=== PATIENT | female | born 1955 | race Caucasian/White ===

== ENCOUNTER 2020-01-02 21:30 | Inpatient (IN) | payer MEDICARE ==
[2020-01-02] MEDS ORDERED: SODIUM CHLORIDE 0.9% 1,000 ML IV STA (21:42)
--- NOTE | 2020-01-02 21:43 | ED ---
Recheck HPI - General Chief Complaint: Recheck/Abnormal Lab/Rx Stated Complaint: Low Hemoglobin Time Seen by Provider: 01/02/20 21:35 Source: patient, RN notes reviewed, old records reviewed Mode of arrival: wheelchair Limitations: no limitations - History of Present Illness Initial Comments: This is a 64-year-old female sent in by primary care physician for abnormal outpatient lab tests is been feeling weak lightheaded dizzy short of breath especially with exertion. Denies blood in the stool states she's having brown stools was about black and tarry stools her had recurrent GI bleeds. No blood thinners. No pain MD Complaint: abnormal lab (Low hemoglobin) -: unknown Returns Today for: Called Because of Abnormal Lab/Test Symptoms Since Prior Visit: no new symptoms Context: called for abnormal lab result Associated Symptoms: none - Related Data Allergies Allergy/AdvReac Type Severity Reaction Status Date / Time Sulfa (Sulfonamide Allergy Rash/Hives Verified 01/02/20 21:39 Antibiotics) zolpidem [From Ambien] Allergy Dyspnea Verified 01/02/20 21:39 Review of Systems ROS Statement: Those systems with pertinent positive or pertinent negative responses have been documented in the HPI. ROS Other: All systems not noted in ROS Statement are negative. Past Medical History Past Medical History: Hyperlipidemia, Hypertension Additional Past Medical History / Comment(s): hital hernia History of Any Multi-Drug Resistant Organisms: None Reported Past Surgical History: Cholecystectomy, Hysterectomy, Tonsillectomy Smoking Status: Never smoker Past Alcohol Use History: None Reported Past Drug Use History: None Reported General Exam Limitations: no limitations General appearance: alert, in no apparent distress Head exam: Present: atraumatic, normocephalic, normal inspection Eye exam: Present: normal appearance, PERRL, EOMI. Absent: scleral icterus, con junctival injection, periorbital swelling ENT exam: Present: normal exam, mucous membranes moist Neck exam: Present: normal inspection. Absent: tenderness, meningismus, lymphadenopathy Respiratory exam: Present: normal lung sounds bilaterally. Absent: respiratory distress, wheezes, rales, rhonchi, stridor Cardiovascular Exam: Present: regular rate, normal rhythm, normal heart sounds. Absent: systolic murmur, diastolic murmur, rubs, gallop, clicks GI/Abdominal exam: Present: soft, normal bowel sounds. Absent: distended, tenderness, guarding, rebound, rigid Extremities exam: Present: normal inspection, full ROM, normal capillary refill. Absent: tenderness, pedal edema, joint swelling, calf tenderness Back exam: Present: normal inspection Neurological exam: Present: alert, oriented X3, CN II-XII intact Psychiatric exam: Present: normal affect, normal mood Skin exam: Present: warm, dry, intact, normal color. Absent: rash Course Vital Signs 01/02/20 21:32 Temperature 97.9 F Pulse Rate 95 Respiratory 18 Rate Blood Pressure 181/77 O2 Sat by Pulse 100 Oximetry - Reevaluation(s) Reevaluation #1: 01/02/20 22:46 Medical record is reviewed Reevaluation #2: 01/02/20 22:47 Patient informed results questions answered, understands need for transfusion and consents - Consultations Consultation #1: spoke with Dr. alejandro savage for admission Medical Decision Making - Medical Decision Making 64 female symptomatic anemia hemoglobin by will admit for transfusion and further evaluation and treatment - Lab Data Result diagrams: 01/02/20 21:44 Lab Results 01/02/20 01/02/20 01/02/20 Range/Units 21:44 21:44 21:44 Sodium 137 (137-145) mmol/L Potassium 3.8 (3.5-5.1) mmol/L Chloride 101 (98-107) mmol/L Carbon Dioxide 25 (22-30) mmol/L Anion Gap 11 mmol/L BUN 13 (7-17) mg/dL Creatinine 0.75 (0.52-1.04) mg/dL Est GFR (CKD-EPI)AfAm >90 (>60 ml/min/1.73 sqM) Est GFR (CKD-EPI)NonAf 83 (>60 ml/min/1.73 sqM) Glucose 236 H (74-99) mg/dL Calcium 9.2 (8.4-10.2) mg/dL Magnesium 2.0 (1.6-2.3) mg/dL Total Bilirubin 0.3 (0.2-1.3) mg/dL AST 25 (14-36) U/L ALT 17 (4-34) U/L Alkaline Phosphatase 89 (38-126) U/L Troponin I <0.012 (0.000-0.034) ng/mL Total Protein 7.2 (6.3-8.2) g/dL Albumin 3.9 (3.5-5.0) g/dL Blood Type Recheck No Previous Record Bld Type Recheck Status CABO Indicated Crossmatch See Detail Disposition Clinical Impression: Anemia Disposition: ADMITTED IP TO THIS HOSP Condition: Good Is patient prescribed a controlled substance at d/c from ED?: No Referrals: Shayne Weller MD [Primary Care Provider] - 1-2 days
[2020-01-02 22:23] LABS: ALT 17 U/L (4-34); AST 25 U/L (14-36); African American GFR (CKD) >90 (>60 ml/min/1.73 sqM); Albumin 3.9 g/dL (3.5-5.0); Alkaline Phosphatase 89 U/L (38-126); Anion Gap 11 mmol/L; Blood Urea Nitrogen 13 mg/dL (7-17); Calcium 9.2 mg/dL (8.4-10.2); Carbon Dioxide 25 mmol/L (22-30); Chloride 101 mmol/L (98-107); Glucose 236 mg/dL (74-99); Non-African American GFR(CKD) 83 (>60 ml/min/1.73 sqM); Potassium 3.8 mmol/L (3.5-5.1); Sodium 137 mmol/L (137-145); Total Bilirubin 0.3 mg/dL (0.2-1.3); Total Protein 7.2 g/dL (6.3-8.2)
[2020-01-02 22:27] LABS: Anisocytosis Slight; Basophils # (A) 0.1 k/uL (0-0.2); Basophils % (A) 1 %; Eosinophils # (A) 0.2 k/uL (0-0.7); Eosinophils % (A) 2 %; HCT 20.4 % (34.0-46.0); Hypochromasia Marked; Lymphocytes # (A) 1.6 k/uL (1.0-4.8); Lymphocytes % (A) 24 %; MCH 15.7 pg (25.0-35.0); MCHC 25.8 g/dL (31.0-37.0); MCV 60.9 fL (80.0-100.0); Mean Platelet Volume 6.5; Microcytosis Marked; Monocytes # (A) 0.4 k/uL (0-1.0); Monocytes % (A) 6 %; Neutrophils # (A) 4.4 k/uL (1.3-7.7); Neutrophils % (A) 64 %; Platelet Count 505 k/uL (150-450); Poikilocytosis Slight; RBC 3.35 m/uL (3.80-5.40); RDW 18.1 % (11.5-15.5); WBC 6.8 k/uL (3.8-10.6)
[2020-01-02 22:38] LABS: INR 0.9 (<1.2); Prothrombin Time 9.4 sec (9.0-12.0)
[2020-01-02 22:47] LABS: HGB 5.3 gm/dL (11.4-16.0)
[2020-01-02 22:57] LABS: Partial Thromboplastin Time 19.6 sec (22.0-30.0)
[2020-01-03 07:03] LABS: Anisocytosis Moderate; Basophils # (A) 0.1 k/uL (0-0.2); Basophils % (A) 1 %; Eosinophils # (A) 0.3 k/uL (0-0.7); Eosinophils % (A) 4 %; HCT 23.7 % (34.0-46.0); Hypochromasia Marked; Lymphocytes # (A) 1.7 k/uL (1.0-4.8); Lymphocytes % (A) 25 %; MCH 18.9 pg (25.0-35.0); MCHC 28.9 g/dL (31.0-37.0); MCV 65.7 fL (80.0-100.0); Mean Platelet Volume 6.7; Microcytosis Marked; Monocytes # (A) 0.4 k/uL (0-1.0); Monocytes % (A) 6 %; Neutrophils # (A) 4.1 k/uL (1.3-7.7); Neutrophils % (A) 61 %; Platelet Count 494 k/uL (150-450); Poikilocytosis Marked; RBC 3.61 m/uL (3.80-5.40); RDW 21.1 % (11.5-15.5); WBC 6.8 k/uL (3.8-10.6)
[2020-01-03 08:03] LABS: HGB 6.8 gm/dL (11.4-16.0)
[2020-01-03 10:23] LABS: Reticulocyte % 2.3 % (0.5-2.0)
[2020-01-03] MEDS ORDERED: DULoxetine HCL 60 MG CAPSULE.DR PO SCH (11:00)
[2020-01-03 11:58] LABS: Glucose,Whole Blood 140 mg/dL (75-99)
[2020-01-03] MEDS: LEVOTHYROXINE 75 MCG TAB PO SCH (12:28)
[2020-01-03] MEDS: PANTOPRAZOLE 40 MG/10 ML VIAL IVP SCH ×2 (12:37→20:48)
[2020-01-03] MEDS: INSULIN ASPART (NovoLOG) 100 UNIT/ML VIAL SQ SCH ×3 (12:39→20:43)
[2020-01-03 15:48] LABS: % Iron Saturation 33.21 (12.00-45.00); Ferritin 2.8 ng/mL (10.0-291.0); Folate, Serum 20.2 ng/mL
[2020-01-03] MEDS ORDERED: PEG 3350-NA SULF,BICARB,CL/KCL 4,000 ML BOTTLE PO ONE (17:00)
[2020-01-03 17:10] LABS: Glucose,Whole Blood 99 mg/dL (75-99)
[2020-01-03] MEDS ORDERED: LIDOCAINE 1% (10MG/ML) FOR IV START INTRADERMA PRN (18:11)
--- NOTE | 2020-01-03 19:35 | P.HPIM ---
History of Present Illness H&P Date: 01/03/20 Chief Complaint: Weak History of presenting complaint: This is a pleasant 64-year-old patient of Dr. Curtis Weller. Chronic stable medical conditions include fibromyalgia, GERD, hypertension, hyperlipidemia, osteoarthritis, obstructive sleep apnea uses CPAP, restless leg syndrome, hiatal hernia, diverticulosis, hypothyroid. Patient does take a baby aspirin. Patient presents with progressive weakness. Getting dizzy. Short of breath with exertion. No chest pain. Patient is found to have a hemoglobin of 5.3. Patient denies any black stools. Also had a brown stool this morning. Patient was ordered 2 units of blood from ER this last night. This morning the hemog lobin was 6.8. I ordered another unit of blood. GI was consulted. Patient appetite has been stable. No weight loss. Review of systems: GEN.: Tired EYES: None HEENT: None NECK: None RESPIRATORY: None CARDIOVASCULAR: None GASTROINTESTINAL: No abdominal pain now dock stools GENITOURINARY: None MUSCULOSKELETAL: Joint pains LYMPHATICS: None HEMATOLOGICAL: None PSYCHIATRY: None NEUROLOGICAL: None Past medical history to include: Fibromyalgia, GERD, hypertension, hyperlipidemia, osteoarthritis, diabetes type 2, obstructive sleep apnea with CPAP, restless leg syndrome, hiatal hernia, diverticulosis, hypothyroid, right eye macular changes with cataract Social history: . Does not smoke or drink alcohol. Physical examination: VITAL SIGNS: 97.9, 95, 18, 154/71, 98% room air GENERAL: BMI 39.5, sitting upon chair, awake. EYES: [Pupils equal. Conjunctiva pale l. HEENT: External appearance of nose and ears normal, oral cavity grossly normal. NECK: JVD not raised; masses not palpable. HEART: First and second heart sounds are normal; no edema. LUNGS: Respiratory rate normal; clear to auscultation. ABDOMEN: Soft, nontender, liver spleen not palpable, no masses palpable. PSYCH: Alert and oriented x3; mood and affect normal. NEUROLOGICAL: Cranial nerves grossly intact; no facial asymmetry, power and sensation grossly intact. LYMPHATICS: No lymph nodes palpable in the axilla and neck INVESTIGATIONS, reviewed in the clinical context: White count 6.8 hemoglobin 5. 3 repeat this morning 6.8 platelets 505 MCV 60.9 Potassium 3.8 creatinine 0.75 INR 175 TIBC 527 ferritin 2.8 vitamin B12 572 folate 20.2 Assessment: -Acute severe microcytic anemia in a patient with resting aspirin. Denies any obvious dark stools. May be having occult bleeding. -Obesity BMI 39.5 Chronic fibromyalgia GERD Hyperlipidemia -Essential hypertension -Primary osteoarthritis -Hypothyroid -Diet is mellitus type II -Arthritis sleep apnea uses CPAP -Restless leg syndrome Plan: Patient's home medications and resume. Hold off oral hypoglycemic. Follow Accu-Cheks. GI was consulted with a view to EGD. Care was discussed with the patient question also. Patient received a total of 3 units of blood.. Past Medical History Past Medical History: Eye Disorder, Fibromyalgia, GERD/Reflux, Hyperlipidemia, Hypertension, Osteoarthritis (OA), Renal Disease, Thyroid Disorder Additional Past Medical History / Comment(s): NIDDM type II, PEYTON with Cpap, restless leg syndrome, hiatal hernia, UTIs, kidney stone which pt passed on her own, diverticulitis, benign colon polyps, hypothyroid, R eye macular pucker/cataract/retinal tear during surgery, L eye cataract. History of Any Multi-Drug Resistant Organisms: None Reported Past Surgical History: Cholecystectomy, Hysterectomy, Tonsillectomy Additional Past Surgical History / Comment(s): Rectocele, cystocele, colonoscopies, R eye surgery for macular pucker/cataract removal and had retinal tear with repair, Past Anesthesia/Blood Transfusion Reactions: No Reported Reaction Smoking Status: Never smoker - Past Family History Mother Family Medical History: COPD Additional Family Medical History / Comment(s): Mother was a heavy smoker. Father Family Medical History: Cancer, COPD Additional Family Medical History / Comment(s): Father was a heavy smoker. He of metastatic prostate cancer. Medications and Allergies Home Medications Medication Instructions Recorded Confirmed Type Aspirin EC [Ecotrin Low Dose] 81 mg PO DAILY 01/02/20 01/02/20 History DULoxetine HCL [Cymbalta] 60 mg PO DAILY 01/02/20 01/02/20 History Famotidine 20 mg PO DAILY 01/02/20 01/02/20 History Levothyroxine Sodium [Synthroid] 150 mcg PO DAILY 01/02/20 01/02/20 History Loratadine 10 mg PO DAILY 01/02/20 01/02/20 History Magnesium Oxide 400 mg PO HS 01/02/20 01/02/20 History Simvastatin [Zocor] 10 mg PO HS 01/02/20 01/02/20 History Vitamin B Complex 1 cap PO DAILY 01/02/20 01/02/20 History hydroCHLOROthiazide 25 mg PO DAILY 01/02/20 01/02/20 History metFORMIN HCL [Glucophage] 500 mg PO BID 01/02/20 01/02/20 History tiZANidine [Zanaflex] 4 mg PO HS 01/02/20 01/02/20 History Allergies Allergy/AdvReac Type Severity Reaction Status Date / Time Sulfa (Sulfonamide Allergy Rash/Hives Verified 01/02/20 23:41 Antibiotics) zolpidem [From Ambien] Allergy Dyspnea Verified 01/02/20 23:41 Physical Exam Vitals: Vital Signs Temp Pulse Pulse Resp BP BP Pulse Ox 01/03/20 15:55 97.9 F 83 18 164/74 96 01/03/20 12:55 98 F 84 18 169/88 96 01/03/20 12:25 86 18 173/91 95 01/03/20 12:15 97.8 F 85 18 168/84 97 01/03/20 11:06 97.8 F 85 18 168/84 97 01/03/20 10:24 97.9 F 82 18 156/74 96 01/03/20 10:00 18 01/03/20 09:00 82 18 156/74 96 01/03/20 08:00 18 01/03/20 06:40 97.9 F 89 16 166/85 96 01/03/20 03:50 98.0 F 94 16 146/60 99 01/03/20 02:25 97.8 F 83 18 163/81 99 01/03/20 01:55 98.7 F 82 18 162/76 97 01/03/20 01:45 98.0 F 91 16 157/75 01/03/20 01:24 97.8 F 90 18 172/81 98 01/03/20 01:19 98.1 F 94 16 148/68 97 01/03/20 00:13 98.2 F 88 18 152/58 98 01/02/20 23:43 98.3 F 85 16 156/81 98 01/02/20 23:33 98.1 F 88 16 166/58 99 01/02/20 23:09 70 18 154/71 98 01/02/20 21:32 97.9 F 95 18 181/77 100 Intake and Output 01/03/20 01/03/20 01/03/20 06:59 14:59 22:59 Intake Total 620 0 310 Balance 620 0 310 Intake: Blood Product 620 0 310 Rc Pheresis 2 As3 Unit 0 310 [id number] Rc Pheresis 2 As3 Unit 310 [id number] Rc Pheresis As-3 Unit 310 [id number] Other: # Voids 3 Weight 114.305 kg Results CBC & Chem 7: 01/03/20 06:48 01/02/20 21:44 Labs: Abnormal Lab Results - Last 24 Hours (Table) 01/02/20 01/02/20 01/02/20 Range/Units 21:44 21:44 21:44 RBC 3.35 L (3.80-5.40) m/uL Hgb 5.3 L* (11.4-16.0) gm/dL Hct 20.4 L (34.0-46.0) % MCV 60.9 L (80.0-100.0) fL MCH 15.7 L (25.0-35.0) pg MCHC 25.8 L (31.0-37.0) g/dL RDW 18.1 H (11.5-15.5) % Plt Count 505 H (150-450) k/uL Retic Count (0.5-2.0) % APTT 19.6 L (22.0-30.0) sec Glucose 236 H (74-99) mg/dL POC Glucose (mg/dL) (75-99) mg/dL Iron (50-170) ug/dL TIBC (228-460) ug/dL Ferritin (10.0-291.0) ng/mL Crossmatch 01/02/20 01/02/20 01/03/20 Range/Units 21:44 21:44 06:48 RBC 3.61 L (3.80-5.40) m/uL Hgb 6.8 L* D (11.4-16.0) gm/dL Hct 23.7 L (34.0-46.0) % MCV 65.7 L (80.0-100.0) fL MCH 18.9 L (25.0-35.0) pg MCHC 28.9 L (31.0-37.0) g/dL RDW 21.1 H (11.5-15.5) % Plt Count 494 H (150-450) k/uL Retic Count 2.3 H (0.5-2.0) % APTT (22.0-30.0) sec Glucose (74-99) mg/dL POC Glucose (mg/dL) (75-99) mg/dL Iron (50-170) ug/dL TIBC (228-460) ug/dL Ferritin (10.0-291.0) ng/mL Crossmatch See Detail 01/03/20 01/03/20 Range/Units 06:48 11:56 RBC (3.80-5.40) m/uL Hgb (11.4-16.0) gm/dL Hct (34.0-46.0) % MCV (80.0-100.0) fL MCH (25.0-35.0) pg MCHC (31.0-37.0) g/dL RDW (11.5-15.5) % Plt Count (150-450) k/uL Retic Count (0.5-2.0) % APTT (22.0-30.0) sec Glucose (74-99) mg/dL POC Glucose (mg/dL) 140 H (75-99) mg/dL Iron 175 H (50-170) ug/dL TIBC 527 H (228-460) ug/dL Ferritin 2.8 L (10.0-291.0) ng/mL Crossmatch Thrombosis Risk Factor Assmnt - Choose All That Apply Any of the Below Risk Factors Present?: Yes Each Factor Represents 1 point: Obesity (BMI >25) Other Risk Factors: Yes Each Risk Factor Represents 2 Points: Age 61-74 years Other congenital or acquired thrombophilia - If yes, enter type in comment: No Thrombosis Risk Factor Assessment Total Risk Factor Score: 3 Thrombosis Risk Factor Assessment Level: Moderate Risk
[2020-01-03 20:42] LABS: Glucose,Whole Blood 116 mg/dL (75-99)
[2020-01-03] MEDS: tiZANidine 4 MG TAB PO SCH (20:48)
[2020-01-03] MEDS: DULoxetine HCL 60 MG CAPSULE.DR PO SCH (20:48)
[2020-01-03] MEDS: ATORVASTATIN 10 MG TAB PO SCH (20:48)
[2020-01-04] MEDS: LEVOTHYROXINE 75 MCG TAB PO SCH (04:35)
[2020-01-04 05:26] LABS: Anisocytosis Moderate; HCT 26.6 % (34.0-46.0); HGB 7.4 gm/dL (11.4-16.0); Hypochromasia Marked; MCHC 27.8 g/dL (31.0-37.0); MCV 68.5 fL (80.0-100.0); Mean Platelet Volume 6.3; Microcytosis Marked; Platelet Count 428 k/uL (150-450); Poikilocytosis Marked; RBC 3.89 m/uL (3.80-5.40); RDW 22.4 % (11.5-15.5); WBC 6.5 k/uL (3.8-10.6)
[2020-01-04] MEDS: LACTATED RINGERS 1,000 ML IV SCH ×2 (05:33→18:17)
[2020-01-04 07:13] LABS: Glucose,Whole Blood 144 mg/dL (75-99)
--- NOTE | 2020-01-04 08:21 | P.CONS ---
History of Present Illness - Reason for Consult Consult date: 01/03/20 Anemia Requesting physician: Singh Roberto - Chief Complaint Anemia - History of Present Illness 64-year-old female with a medical history significant for diabetes mellitus, hyperlipidemia and hypertension who presented to the hospital for evaluation of anemia. The patient had been seen in the outpatient setting by her PCP where she had reported weakness and shortness of breath. Hemoglobin was drawn at that time and found to be depressed at 5.0. On questioning the patient denies any gross signs or symptoms of GI bleeding. She does have a history of acid reflux worse with eating. Previously she had undergone endoscopic evaluation approximately 4 to 5 years ago with EGD and colonoscopy at [facility] significant for diverticulosis. She also reports a history of a hiatal hernia. Hemoglobin currently 6.8 with WBC 6.8, platelet count 494,000 with total bilirubin 0.3, alkaline phosphatase 89, AST 25 and ALT 17. The patient does take aspirin daily. Currently denying any abdominal pain. Review of Systems REVIEW OF SYSTEMS: CONSTITUTIONAL: Denies any fevers, chills, weight change but she does report fatigue. CARDIOVASCULAR: Denies any chest pain, palpitations high or low blood pressures RESPIRATORY: Denies any hemoptysis or cough but does report shortness of breath. GENITOURINARY: No dysuria or hematuria, does report dark colored urine. MUSCULOSKELETAL: No weakness reported. SKIN: Denies any new rashes or lesions, jaundice or pallor. PSYCHIATRIC: Denies any depression or anxiety. NEUROLOGY: Denies headache, denies any new focal deficits. EARS/NOSE/THROAT: No recent hearing change, congestion, nasal discharge or sore throat. EYES: No pain in eyes, discharge or change in vision. GASTROINTESTINAL: As per HPI. Past Medical History Past Medical History: Eye Disorder, Fibromyalgia, GERD/Reflux, Hyperlipidemia, Hypertension, Osteoarthritis (OA), Renal Disease, Thyroid Disorder Additional Past Medical History / Comment(s): NIDDM type II, PEYTON with Cpap, restless leg syndrome, hiatal hernia, UTIs, kidney stone which pt passed on her own, diverticulitis, benign colon polyps, hypothyroid, R eye macular pucker/cataract/retinal tear during surgery, L eye cataract. History of Any Multi-Drug Resistant Organisms: None Reported Past Surgical History: Cholecystectomy, Hysterectomy, Tonsillectomy Additional Past Surgical History / Comment(s): Rectocele, cystocele, colonoscopies, R eye surgery for macular pucker/cataract removal and had retinal tear with repair, Past Anesthesia/Blood Transfusion Reactions: No Reported Reaction Smoking Status: Never smoker - Past Family History Mother Family Medical History: COPD Additional Family Medical History / Comment(s): Mother was a heavy smoker. Father Family Medical History: Cancer, COPD Additional Family Medical History / Comment(s): Father was a heavy smoker. He of metastatic prostate cancer. Medications and Allergies Home Medications Medication Instructions Recorded Confirmed Type Aspirin EC [Ecotrin Low Dose] 81 mg PO DAILY 01/02/20 01/02/20 History DULoxetine HCL [Cymbalta] 60 mg PO DAILY 01/02/20 01/02/20 History Famotidine 20 mg PO DAILY 01/02/20 01/02/20 History Levothyroxine Sodium [Synthroid] 150 mcg PO DAILY 01/02/20 01/02/20 History Loratadine 10 mg PO DAILY 01/02/20 01/02/20 History Magnesium Oxide 400 mg PO HS 01/02/20 01/02/20 History Simvastatin [Zocor] 10 mg PO HS 01/02/20 01/02/20 History Vitamin B Complex 1 cap PO DAILY 01/02/20 01/02/20 History hydroCHLOROthiazide 25 mg PO DAILY 01/02/20 01/02/20 History metFORMIN HCL [Glucophage] 500 mg PO BID 01/02/20 01/02/20 History tiZANidine [Zanaflex] 4 mg PO HS 01/02/20 01/02/20 History Allergies Allergy/AdvReac Type Severity Reaction Status Date / Time Sulfa (Sulfonamide Allergy Rash/Hives Verified 01/02/20 23:41 Antibiotics) zolpidem [From Ambien] Allergy Dyspnea Verified 01/02/20 23:41 Physical Exam Vitals: Vital Signs Temp Pulse Pulse Resp BP BP Pulse Ox 01/03/20 12:55 98 F 84 18 169/88 96 01/03/20 12:25 86 18 173/91 95 01/03/20 12:15 97.8 F 85 18 168/84 97 01/03/20 11:06 97.8 F 85 18 168/84 97 01/03/20 10:24 97.9 F 82 18 156/74 96 01/03/20 10:00 18 01/03/20 09:00 82 18 156/74 96 01/03/20 08:00 18 01/03/20 06:40 97.9 F 89 16 166/85 96 01/03/20 03:50 98.0 F 94 16 146/60 99 01/03/20 02:25 97.8 F 83 18 163/81 99 01/03/20 01:55 98.7 F 82 18 162/76 97 01/03/20 01:45 98.0 F 91 16 157/75 01/03/20 01:24 97.8 F 90 18 172/81 98 01/03/20 01:19 98.1 F 94 16 148/68 97 01/03/20 00:13 98.2 F 88 18 152/58 98 01/02/20 23:43 98.3 F 85 16 156/81 98 01/02/20 23:33 98.1 F 88 16 166/58 99 01/02/20 23:09 70 18 154/71 98 01/02/20 21:32 97.9 F 95 18 181/77 100 Intake and Output 01/03/20 01/03/20 01/03/20 06:59 14:59 22:59 Intake Total 620 0 Balance 620 0 Intake: Blood Product 620 0 Rc Pheresis 2 As3 Unit 0 [id number] Rc Pheresis 2 As3 Unit 310 [id number] Rc Pheresis As-3 Unit 310 [id number] Other: # Voids 3 Weight 114.305 kg On physical examination, patient appears comfortable in no apparent distress. HEAD: Normocephalic, atraumatic. EYES: No scleral icterus. No conjunctival injection. MOUTH: No lesions, tongue midline. NECK: Trachea midline, no gross abnormalities. CHEST: Clear to auscultation with no wheezing or rhonchi appreciated. HEART: Regular rate and rhythm. ABDOMEN: Soft, obese. Bowel sounds are positive. No organomegaly. No guarding or rigidity. EXTREMITIES: No pedal edema. SKIN: No rashes, no jaundice. NEUROLOGIC: Alert and oriented x3. No focal deficits. Results CBC & Chem 7: 01/04/20 04:51 01/02/20 21:44 Labs: Abnormal Lab Results - Last 24 Hours (Table) 01/02/20 01/02/2020 Range/Units 21:44 21:44 21:44 RBC 3.35 L (3.80-5.40) m/uL Hgb 5.3 L* (11.4-16.0) gm/dL Hct 20.4 L (34.0-46.0) % MCV 60.9 L (80.0-100.0) fL MCH 15.7 L (25.0-35.0) pg MCHC 25.8 L (31.0-37.0) g/dL RDW 18.1 H (11.5-15.5) % Plt Count 505 H (150-450) k/uL Retic Count (0.5-2.0) % APTT 19.6 L (22.0-30.0) sec Glucose 236 H (74-99) mg/dL POC Glucose (mg/dL) (75-99) mg/dL Crossmatch 01/02/20 01/02/20 01/03/20 Range/Units 21:44 21:44 06:48 RBC 3.61 L (3.80-5.40) m/uL Hgb 6.8 L* D (11.4-16.0) gm/dL Hct 23.7 L (34.0-46.0) % MCV 65.7 L (80.0-100.0) fL MCH 18.9 L (25.0-35.0) pg MCHC 28.9 L (31.0-37.0) g/dL RDW 21.1 H (11.5-15.5) % Plt Count 494 H (150-450) k/uL Retic Count 2.3 H (0.5-2.0) % APTT (22.0-30.0) sec Glucose (74-99) mg/dL POC Glucose (mg/dL) (75-99) mg/dL Crossmatch See Detail 01/03/20 Range/Units 11:56 RBC (3.80-5.40) m/uL Hgb (11.4-16.0) gm/dL Hct (34.0-46.0) % MCV (80.0-100.0) fL MCH (25.0-35.0) pg MCHC (31.0-37.0) g/dL RDW (11.5-15.5) % Plt Count (150-450) k/uL Retic Count (0.5-2.0) % APTT (22.0-30.0) sec Glucose (74-99) mg/dL POC Glucose (mg/dL) 140 H (75-99) mg/dL Crossmatch Assessment and Plan (1) Microcytic hypochromic anemia Narrative/Plan: 64-year-old female with multiple medical comorbidities presenting to the hospital for evaluation of symptomatic anemia with hemoglobin found to be 5.0 in the outpatient setting and with complaints of shortness of breath and weakness. Hemoglobin currently 6.8 status post transfusion of 2 units of packed red blood cells. She is denying any signs or symptoms of GI bleeding but does take daily aspirin therapy. Last endoscopic evaluation 45 years ago with a EGD and colonoscopy significant for diverticulosis. Unclear etiology of anemia with plan for endoscopic evaluation to rule out GI bleed and differential including peptic ulcer disease, gastritis, esophagitis, AVM, or other etiology. Current Visit: Yes Status: Acute Code(s): D50.9 - IRON DEFICIENCY ANEMIA, UNSPECIFIED SNOMED Code(s): 93432646 Plan: Supportive care Clear liquid diet N.p.o. after midnight Continue to monitor hemoglobin and hematocrit and transfuse as needed Bowel prep ordered Continue Protonix therapy Iron studies ordered Plan for EGD and colonoscopy tomorrow with all the risks, benefits and possible complications discussed with the patient and her daughter at length and all of their questions answered to their satisfaction
[2020-01-04] MEDS: INSULIN ASPART (NovoLOG) 100 UNIT/ML VIAL SQ SCH ×4 (08:26→20:32)
[2020-01-04] MEDS: PANTOPRAZOLE 40 MG/10 ML VIAL IVP SCH ×2 (08:43→20:56)
[2020-01-04 09:21] LABS: African American GFR (CKD) 104.6 (60.0-200.0); Anion Gap 9.2 mmol/L (4.00-12.00); BUN/Creat Ratio 11.43 Ratio (12.00-20.00); Carbon Dioxide 25.8 mmol/L (21.6-31.8); Non-African American GFR(CKD) 90.3 (60.0-200.0); Potassium 4.2 mmol/L (3.5-5.5)
[2020-01-04 11:23] LABS: Glucose,Whole Blood 137 mg/dL (75-99)
[2020-01-04] MEDS ORDERED: SODIUM CHLORIDE 0.9% 1,000 ML IV ONE (12:33)
[2020-01-04] MEDS ORDERED: PROPOFOL 10 MG/ML 20 ML VIAL IV ONE (12:37)
[2020-01-04] MEDS ORDERED: LIDOCAINE 1% INJ 10MG/ML (20 ML MDV) ONE (12:37)
--- NOTE | 2020-01-04 13:25 | P.PCN ---
Date of Procedure: 01/04/20 Description of Procedure: Brief history: 64-year-old female with a medical history significant for diabetes mellitus, hyperlipidemia and hypertension who presented to the hospital for evaluation of anemia. The patient had been seen in the outpatient setting by her PCP where she had reported weakness and shortness of breath. Hemoglobin was drawn at that time and found to be depressed at 5.0. On questioning the patient denies any gross signs or symptoms of GI bleeding. She does have a history of acid reflux worse with eating. Previously she had undergone endoscopic evaluation approximately 4 to 5 years ago with EGD and colonoscopy at [facility] significant for diverticulosis. She also reports a history of a hiatal hernia. Hemoglobin currently 6.8 with WBC 6.8, platelet count 494,000 with total bilirubin 0.3, alkaline phosphatase 89, AST 25 and ALT 17. The patient does take aspirin daily. Currently denying any abdominal pain. Procedure performed: Esophagogastroduodenoscopy with biopsy Colonoscopy with polypectomy Estimated blood loss: Minimal. Preoperative diagnosis: Anemia. Anesthesia: MAC Procedure: After informed consent was obtained from the patient was brought into the endoscopy unit and IV sedation was administered by anesthesia under continuous monitoring. Initially upper endoscopy was done. The Olympus GF 190 video endoscope was inserted into the mouth and esophagus intubated without any difficulty and was gradually advanced into the stomach and duodenum and carefully examined. The bulb and second part of the duodenum appeared normal, with biopsies taken. The scope was then withdrawn into the stomach adequately insufflated with air and upon careful examination the antrum and body, cardia and fundus appeared normal, except for some mild scattered erythema in the antrum and body suggestive of mild gastritis with biopsies taken. The scope was then withdrawn into the esophagus. The GE junction was located at 35 cm to the incisors, with a 5 cm hiatal hernia noted. It appeared regular with no erythema erosions or ulcerations. Rest of the esophagus appeared normal. Patient tolerated the procedure well. At this time the patient continued to remain sedation. Initial digital rectal examination was normal. Olympus CF 190 video colonoscope was then inserted into the rectum and gradually advanced to the cecum without any difficulty. Careful examination was performed as the scope was gradually being withdrawn. The prep was excellent. The cecum, ascending colon, transverse colon, descending colon, sigmoid colon and rectum appeared normal. A diminutive 2 mm sigmoid colon polyp was removed with cold forcep polypectomy. A few scattered diverticula noted in the sigmoid colon. Low-grade internal hemorrhoids. Retroflexion was performed in the rectum and no lesions were noted. Patient tolerated the procedure well. Impression: 1. Mild gastritis. Large hiatal hernia. Biopsies taken of the antrum body and duodenum. 2. Diminutive sigmoid polyp removed with cold forceps. Mild sigmoid diverticulosis. Internal hemorrhoids. Recommendations: Findings of this examination were discussed with the patient. Continue monitor hemoglobin and hematocrit and transfuse as needed. Plan is for video capsule endoscopy for further evaluation. Further recommendations pending findings of a VCE.
[2020-01-04] MEDS ORDERED: SIMETHICONE 40 MG/0.6 ML DROPS 2,000 MG/30 ML BOTTLE PO ONE (15:10)
[2020-01-04 17:15] LABS: Glucose,Whole Blood 124 mg/dL (75-99)
--- NOTE | 2020-01-04 19:33 | P.PN ---
Progress Note - Text Progress Note Date: 01/04/20 Chief Complaint: Weak History of presenting complaint: This is a pleasant 64-year-old patient of Dr. Curtis Weller. Chronic stable medical conditions include fibromyalgia, GERD, hypertension, hyperlipidemia, osteoarthritis, obstructive sleep apnea uses CPAP, restless leg syndrome, hiatal hernia, diverticulosis, hypothyroid. Patient does take a baby aspirin. Patient presents with progressive weakness. Getting dizzy. Short of breath with exertion. No chest pain. Patient is found to have a hemoglobin of 5.3. Patient denies any black stools. Also had a brown stool this morning. Patient was ordered 2 units of blood from ER this last night. This morning the hemoglobin was 6.8. I ordered another unit of blood. appetite has been stable. No weight loss. Today-laying in bed. Comfortable. Later this afternoon went for EGD. Moderately large hiatal hernia. Plan is for a small bowel capsule study. Review of systems: Was done for constitutional, cardiovascular, GI, pulmonary. relevant finding as above Active Medications Acetaminophen (Acetaminophen Tab 325 Mg Tab) 650 mg PO Q6HR PRN PRN Reason: Fever and/ or Pain Atorvastatin Calcium (Atorvastatin 10 Mg Tab) 10 mg PO [facility] Last Admin: 01/03/20 20:48 Dose: 10 mg Documented by: Duloxetine HCl (Duloxetine Hcl 60 Mg Juan Manuel.) 60 mg PO [facility] Last Admin: 01/03/20 20:48 Dose: 60 mg Documented by: Lactated Ringer's (Lactated Ringers) 1,000 mls @ 20 mls/hr IV .Q24H [facility] Last Admin: 01/04/20 18:17 Dose: Not Given Documented by: Insulin Aspart (Insulin Aspart (Novolog) 100 Unit/Ml Vial) 0 unit SQ [facility]; Protocol Last Admin: 01/04/20 18:17 Dose: Not Given Documented by: Levothyroxine Sodium (Levothyroxine 75 Mcg Tab) 150 mcg PO DAILY@0630 [facility] Last Admin: 01/04/20 04:35 Dose: Not Given Documented by: Lidocaine HCl (Lidocaine 1% (10mg/Ml) For Iv Start) 0.1 ml INTRADERMA PER PROTOCOL PRN PRN Reason: IV Start Pantoprazole Sodium (Pantoprazole 40 Mg/10 Ml Vial) 40 mg IVP BID [facility] Last Admin: 01/04/20 08:43 Dose: 40 mg Documented by: Tizanidine HCl (Tizanidine 4 Mg Tab) 4 mg PO HS [facility] Last Admin: 01/03/20 20:48 Dose: 4 mg Documented by: Physical examination: VITAL SIGNS: 98.5, 85, 18, 157/89, 96% room air GENERAL: Laying in bed, comfortable EYES: Pupils equal. Conjunctiva pale . NECK: JVD not raised; masses not palpable. HEART: First and second heart sounds are normal; no edema. LUNGS: Respiratory rate normal; clear to auscultation. ABDOMEN: Soft, nontender, liver spleen not palpable, no masses palpable. PSYCH: Alert and oriented x3; mood and affect normal. INVESTIGATIONS, reviewed in the clinical context: Hemoglobin 7.4 Previous testing White count 6.8 hemoglobin 5. 3 repeat - 6.8 platelets 505 MCV 60.9 Potassium 3.8 creatinine 0.75 INR 175 TIBC 527 ferritin 2.8 vitamin B12 572 folate 20.2 Assessment: -Acute severe microcytic anemia in a patient who takes baby aspirin. Denies any obvious dark stools. EGD shows large hiatal hernia. -Obesity BMI 39.5 -Chronic fibromyalgia -GERD -Hyperlipidemia -Essential hypertension -Primary osteoarthritis -Hypothyroid -Diabetes mellitus type II -Arthritis sleep apnea uses CPAP -Restless leg syndrome Plan: Plan is for patient to go for a small bowel capsule study tomorrow. Repeat hemoglobin. We'll get a hematology consultation. Discussed with patient.
[2020-01-04] MEDS: ACETAMINOPHEN TAB 325 MG TAB PO PRN (19:58)
[2020-01-04] MEDS: DULoxetine HCL 60 MG CAPSULE.DR PO SCH (20:57)
[2020-01-04] MEDS: ATORVASTATIN 10 MG TAB PO SCH (20:57)
[2020-01-04] MEDS: tiZANidine 4 MG TAB PO SCH (20:57)
[2020-01-05] MEDS: LEVOTHYROXINE 75 MCG TAB PO SCH (05:47)
[2020-01-05 06:50] LABS: Anisocytosis Marked; Basophils % (A) 1 %; Eosinophils # (A) 0.2 k/uL (0-0.7); Eosinophils % (A) 4 %; HCT 26.1 % (34.0-46.0); HGB 7.2 gm/dL (11.4-16.0); Hypochromasia Marked; Lymphocytes # (A) 1.7 k/uL (1.0-4.8); Lymphocytes % (A) 29 %; MCHC 27.6 g/dL (31.0-37.0); MCV 68.8 fL (80.0-100.0); Mean Platelet Volume 6.8; Microcytosis Marked; Monocytes # (A) 0.4 k/uL (0-1.0); Monocytes % (A) 8 %; Neutrophils # (A) 3.2 k/uL (1.3-7.7); Neutrophils % (A) 55 %; Platelet Count 425 k/uL (150-450); Poikilocytosis Marked; RBC 3.79 m/uL (3.80-5.40); RDW 24.5 % (11.5-15.5); WBC 5.7 k/uL (3.8-10.6)
[2020-01-05 07:11] LABS: Glucose,Whole Blood 159 mg/dL (75-99)
[2020-01-05] MEDS: INSULIN ASPART (NovoLOG) 100 UNIT/ML VIAL SQ SCH ×5 (09:26→20:37)
[2020-01-05] MEDS: PANTOPRAZOLE 40 MG/10 ML VIAL IVP SCH ×2 (09:26→20:42)
[2020-01-05] MEDS: ACETAMINOPHEN TAB 325 MG TAB PO PRN (09:32)
[2020-01-05 11:44] LABS: Glucose,Whole Blood 156 mg/dL (75-99)
[2020-01-05] MEDS: metFORMIN 500 MG TAB PO SCH ×2 (11:49→18:07)
--- NOTE | 2020-01-05 13:50 | P.PN ---
Subjective Progress Note Date: 01/05/20 Principal diagnosis: Anemia Objective - Vital Signs Vital signs: Vital Signs Temp 97.7 F 01/05/20 11:15 Pulse 71 01/05/20 11:15 Resp 18 01/05/20 11:15 BP 138/76 01/05/20 11:15 Pulse Ox 97 01/05/20 07:45 Intake & Output 01/04/20 01/05/20 01/05/20 18:59 06:59 18:59 Intake Total 100 Balance 100 Intake: IV 100 Other: # Voids 1 2 - Labs CBC & Chem 7: 01/05/20 06:17 01/04/20 04:51 Labs: Abnormal Lab Results - Last 24 Hours (Table) 01/04/20 01/05/20 01/05/20 Range/Units 17:08 06:17 07:09 RBC 3.79 L (3.80-5.40) m/uL Hgb 7.2 L (11.4-16.0) gm/dL Hct 26.1 L (34.0-46.0) % MCV 68.8 L (80.0-100.0) fL MCH 19.0 L (25.0-35.0) pg MCHC 27.6 L (31.0-37.0) g/dL RDW 24.5 H (11.5-15.5) % POC Glucose (mg/dL) 124 H 159 H (75-99) mg/dL 01/05/20 Range/Units 11:43 RBC (3.80-5.40) m/uL Hgb (11.4-16.0) gm/dL Hct (34.0-46.0) % MCV (80.0-100.0) fL MCH (25.0-35.0) pg MCHC (31.0-37.0) g/dL RDW (11.5-15.5) % POC Glucose (mg/dL) 156 H (75-99) mg/dL Assessment and Plan (1) Microcytic hypochromic anemia Narrative/Plan: 64-year-old female with multiple medical comorbidities presenting to the hospital for evaluation of symptomatic anemia with hemoglobin found to be 5.0 in the outpatient setting and with complaints of shortness of breath and weakness. Hemoglobin currently 6.8 status post transfusion of 2 units of packed red blood cells. She is denying any signs or symptoms of GI bleeding but does take daily aspirin therapy. Last endoscopic evaluation 45 years ago with a EGD and colonoscopy significant for diverticulosis. Unclear etiology of anemia with plan for endoscopic evaluation to rule out GI bleed and differential including peptic ulcer disease, gastritis, esophagitis, AVM, or other etiology. The patient underwent upper and lower endoscopy yesterday which revealed mild gastritis and a large hiatal hernia. Biopsies were taken. There is a diminutive sigmoid polyp removed with cold forceps and mild sigmoid diverticulosis. As well as internal hemorrhoids. The patient followed with a video capsule endoscopy for further evaluation. Results are pending at this time. Current Visit: Yes Status: Acute Code(s): D50.9 - IRON DEFICIENCY ANEMIA, UNSPECIFIED SNOMED Code(s): 63652776 Plan: 1. Supportive care 2. Regular diet 3. Patient status post upper and lower endoscopy, small bowel video capsule pending results 4. Continue with Protonix 40 mg twice a day 5. Iron studies were ordered, however drawn after transfusion 6. Iron transfusion ordered per medical team 7. Continue to monitor hemoglobin and hematocrit, transfuse as needed for hemoglobin below 7 The impression and plan of care has been dictated as directed. I performed a history and examination of this patient, discussed the same with the dictator. I agree with the dictator's note ,documented as a scribe. Any additional findings or plans will be noted.
--- NOTE | 2020-01-05 16:13 | P.CONS ---
History of Present Illness - Reason for Consult Consult date: 01/05/20 Iron def anemia - History of Present Illness The patient is a 64-year-old white female with multiple but well-controlled medical problems. The patient had presented with progressive shortness of breath, and dizziness on exertion that had been progressive over the past 3-4 weeks. She was found to have a hemoglobin in the 5 range, specifically 5.8 on presentation. Labs were consistent with iron deficiency. Consult was therefore placed for further evaluation and recommendations. She denied any obvious blood loss. No prior history of blood related problems. She feels that her hemoglobin was normal, on routine blood work done by her PCP in spring of this year. She had an EGD and colonoscopy this ad mission without any significant findings. She states that she has had colonoscopies previously which are also negative. She does take baby aspirin. She denies any other anticoagulant, antiplatelet, or NSAID use. Review of Systems Constitutional: Reports fatigue Eyes: denies blurred vision, denies pain Ears: deny: decreased hearing, ear discharge, earache, tinnitus Ears, nose, mouth and throat: Denies headache, Denies sore throat Cardiovascular: Reports shortness of breath Respiratory: Reports dyspnea Gastrointestinal: Denies abdominal pain, Denies diarrhea, Denies nausea, Denies vomiting Genitourinary: Denies dysuria, Denies hematuria Menstruation: Reports postmenopausal Musculoskeletal: Denies myalgias Integumentary: Denies pruritus, Denies rash Neurological: Reports weakness Psychiatric: Denies anxiety, Denies depression Endocrine: Reports fatigue Hematologic/Lymphatic: Reports as per HPI Past Medical History Past Medical History: Eye Disorder, Fibromyalgia, GERD/Reflux, Hyperlipidemia, Hypertension, Osteoarthritis (OA), Renal Disease, Thyroid Disorder Additional Past Medical History / Comment(s): NIDDM type II, PEYTON with Cpap, restless leg syndrome, hiatal hernia, UTIs, kidney stone which pt passed on her own, diverticulitis, benign colon polyps, hypothyroid, R eye macular pucker/cataract/retinal tear during surgery, L eye cataract. History of Any Multi-Drug Resistant Organisms: None Reported Past Surgical History: Cholecystectomy, Hysterectomy, Tonsillectomy Additional Past Surgical History / Comment(s): Rectocele, cystocele, colonoscopies, R eye surgery for macular pucker/cataract removal and had retinal tear with repair, Past Anesthesia/Blood Transfusion Reactions: No Reported Reaction Smoking Status: Never smoker - Past Family History Mother Family Medical History: COPD Additional Family Medical History / Comment(s): Mother was a heavy smoker. Father Family Medical History: Cancer, COPD Additional Family Medical History / Comment(s): Father was a heavy smoker. He of metastatic prostate cancer. Medications and Allergies Home Medications Medication Instructions Recorded Confirmed Type Aspirin EC [Ecotrin Low Dose] 81 mg PO DAILY 01/02/20 01/02/20 History DULoxetine HCL [Cymbalta] 60 mg PO DAILY 01/02/20 01/02/20 History Famotidine 20 mg PO DAILY 01/02/20 01/02/20 History Levothyroxine Sodium [Synthroid] 150 mcg PO DAILY 01/02/20 01/02/20 History Loratadine 10 mg PO DAILY 01/02/20 01/02/20 History Magnesium Oxide 400 mg PO HS 01/02/20 01/02/20 History Simvastatin [Zocor] 10 mg PO HS 01/02/20 01/02/20 History Vitamin B Complex 1 cap PO DAILY 01/02/20 01/02/20 History hydroCHLOROthiazide 25 mg PO DAILY 01/02/20 01/02/20 History metFORMIN HCL [Glucophage] 500 mg PO BID 01/02/20 01/02/20 History tiZANidine [Zanaflex] 4 mg PO HS 01/02/20 01/02/20 History Allergies Allergy/AdvReac Type Severity Reaction Status Date / Time Sulfa (Sulfonamide Allergy Rash/Hives Verified 01/02/20 23:41 Antibiotics) zolpidem [From Ambien] Allergy Dyspnea Verified 01/02/20 23:41 Physical Exam Vitals: Vital Signs Temp Pulse Resp BP Pulse Ox 01/05/20 11:15 97.7 F 71 18 138/76 01/05/20 07:45 97.7 F 67 19 165/98 97 01/05/20 04:42 98.0 F 71 18 109/58 97 01/04/20 22:10 97.8 F 91 18 122/60 95 01/04/20 20:32 98.1 F 92 18 186/77 98 Intake and Output 01/05/20 01/05/20 01/05/20 06:59 14:59 22:59 Other: # Voids 2 3 - Constitutional General appearance: no acute distress - EENT Eyes: EOMI, PERRLA ENT: hearing grossly normal, normal oropharynx - Neck Neck: no lymphadenopathy Thyroid: bilateral: normal size - Respiratory Respiratory: bilateral: CTA - Cardiovascular Rhythm: regular Heart sounds: normal: S1, S2 - Gastrointestinal General gastrointestinal: normal bowel sounds, soft - Integumentary Integumentary: normal - Neurologic Neurologic: CNII-XII intact - Musculoskeletal Musculoskeletal: generalized weakness, strength equal bilaterally - Psychiatric Psychiatric: A&O x's 3, appropriate affect Results CBC & Chem 7: 01/05/20 06:17 01/04/20 04:51 Labs: Abnormal Lab Results - Last 24 Hours (Table) 01/04/20 01/05/20 01/05/20 Range/Units 17:08 06:17 07:09 RBC 3.79 L (3.80-5.40) m/uL Hgb 7.2 L (11.4-16.0) gm/dL Hct 26.1 L (34.0-46.0) % MCV 68.8 L (80.0-100.0) fL MCH 19.0 L (25.0-35.0) pg MCHC 27.6 L (31.0-37.0) g/dL RDW 24.5 H (11.5-15.5) % POC Glucose (mg/dL) 124 H 159 H (75-99) mg/dL 01/05/20 Range/Units 11:43 RBC (3.80-5.40) m/uL Hgb (11.4-16.0) gm/dL Hct (34.0-46.0) % MCV (80.0-100.0) fL MCH (25.0-35.0) pg MCHC (31.0-37.0) g/dL RDW (11.5-15.5) % POC Glucose (mg/dL) 156 H (75-99) mg/dL Comments: EGD and colonoscopy - Operative notes reviewed Assessment and Plan (1) Microcytic hypochromic anemia Narrative/Plan: This appears to be a new problem, and was quite severe. Labs indicate iron deficiency. - The patient had an EGD and colonoscopy that did not show any significant findings. Pathology is pending. Assuming this to be negative, the most likely etiology would be small bowel AVM related chronic, low volume blood loss , with possible exacerbation due to aspirin use. - The patient is supposed to have a capsule endoscopy done. She was advised that from my standpoint. Given the negative result would not change manager, as this may not be very sensitive for finding small AVMs scattered throughout the small intestine - Therefore from our standpoint, the main stay of treatment is monitoring and aggressive iron replacement. The patient will receive IV iron inpatient. She can also receive additional infusions as an outpatient. I will also recommend starting her on oral iron. Follow-up in the office in about 5-6 weeks with repeat labs and additional IV iron as needed - The patient does not take aspirin for any specific reason, just for general prophylaxis. She was therefore asked to discontinue the same. Current Visit: Yes Status: Acute Code(s): D50.9 - IRON DEFICIENCY ANEMIA, UNSPECIFIED SNOMED Code(s): 06517014 Plan: Defer to the admitting service and other consultants for management of her other medical problems.
[2020-01-05 17:18] LABS: Glucose,Whole Blood 129 mg/dL (75-99)
[2020-01-05] MEDS: LACTATED RINGERS 1,000 ML IV SCH (18:02)
[2020-01-05] MEDS ORDERED: SODIUM FERRIC GLUCONAT-SUCROSE 125 MG in SODIUM CHLORIDE 0.9% 100 ML IVPB SCH (19:00)
[2020-01-05] MEDS: DULoxetine HCL 60 MG CAPSULE.DR PO SCH (20:44)
[2020-01-05] MEDS: ATORVASTATIN 10 MG TAB PO SCH (20:44)
[2020-01-05] MEDS: tiZANidine 4 MG TAB PO SCH (20:44)
[2020-01-05 20:53] LABS: Glucose,Whole Blood 177 mg/dL (75-99)
[2020-01-05 21:30] LABS: Hemoglobin A1C 6.1 % (4.0-6.0)
--- NOTE | 2020-01-06 00:39 | P.PN ---
Progress Note - Text Progress Note Date: 01/05/20 Chief Complaint: Weak History of presenting complaint: This is a pleasant 64-year-old patient of Dr. Curtis Weller. Chronic stable medical conditions include fibromyalgia, GERD, hypertension, hyperlipidemia, osteoarthritis, obstructive sleep apnea uses CPAP, restless leg syndrome, hiatal hernia, diverticulosis, hypothyroid. Patient does take a baby aspirin. Patient presents with progressive weakness. Getting dizzy. Short of breath with exertion. No chest pain. Patient is found to have a hemoglobin of 5.3. Patient denies any black stools. Also had a brown stool this morning. Patient was ordered 2 units of blood from ER this last night. This morning the hemoglobin was 6.8. I ordered another unit of blood. appetite has been stable. No weight loss. EGD.- Moderately large hiatal hernia. Today- small bowel capsule study-done yesterday. Saw the patient this morning. Pending hematological consult.. Review of systems: Was done for constitutional, cardiovascular, GI, pulmonary. relevant finding as above Active Medications Acetaminophen (Acetaminophen Tab 325 Mg Tab) 650 mg PO Q6HR PRN PRN Reason: Fever and/ or Pain Last Admin: 01/05/20 09:32 Dose: 325 mg Documented by: Atorvastatin Calcium (Atorvastatin 10 Mg Tab) 10 mg PO [facility] Last Admin: 01/05/20 20:44 Dose: 10 mg Documented by: Duloxetine HCl (Duloxetine Hcl 60 Mg Capsule.) 60 mg PO [facility] Last Admin: 01/05/20 20:44 Dose: 60 mg Documented by: Lactated Ringer's (Lactated Ringers) 1,000 mls @ 20 mls/hr IV .Q24H [facility] Last Admin: 01/05/20 18:02 Dose: Not Given Documented by: Ferric Sodium Gluconate 125 mg (/ Sodium Chloride) 110 mls @ 100 mls/hr IVPB Q24HR@1200 [facility] Stop: 01/06/20 13:05 Last Admin: 01/05/20 19:27 Dose: 100 mls/hr Documented by: Insulin Aspart (Insulin Aspart (Novolog) 100 Unit/Ml Vial) 0 unit SQ [facility]; Protocol Last Admin: 01/05/20 20:37 Dose: Not Given Documented by: Levothyroxine Sodium (Levothyroxine 75 Mcg Tab) 150 mcg PO DAILY@0630 [facility] Last Admin: 01/05/20 05:47 Dose: 150 mcg Documented by: Lidocaine HCl (Lidocaine 1% (10mg/Ml) For Iv Start) 0.1 ml INTRADERMA PER PROTOCOL PRN PRN Reason: IV Start Metformin HCl (Metformin 500 Mg Tab) 500 mg PO AC-BID [facility] Last Admin: 01/05/20 18:07 Dose: 500 mg Documented by: Pantoprazole Sodium (Pantoprazole 40 Mg/10 Ml Vial) 40 mg IVP BID [facility] Last Admin: 01/05/20 20:42 Dose: 40 mg Documented by: Tizanidine HCl (Tizanidine 4 Mg Tab) 4 mg PO HS [facility] Last Admin: 01/05/20 20:44 Dose: 4 mg Documented by: Physical examination: VITAL SIGNS: 37.7, 71, 18, 136/76, 99% room air GENERAL: Sitting up chair, comfortable EYES: Pupils equal. Conjunctiva pale . NECK: JVD not raised; masses not palpable. HEART: First and second heart sounds are normal; no edema. LUNGS: Respiratory rate normal; clear to auscultation. ABDOMEN: Soft, nontender, liver spleen not palpable, no masses palpable. PSYCH: Alert and oriented x3; mood and affect normal. INVESTIGATIONS, reviewed in the clinical context: Hemoglobin 7.2 Previous testing White count 6.8 hemoglobin 5. 3 repeat - 6.8 platelets 505 MCV 60.9 Potassium 3.8 creatinine 0.75 INR 175 TIBC 527 ferritin 2.8 vitamin B12 572 folate 20.2 Assessment: -Acute severe microcytic anemia in a patient who takes baby aspirin. Denies any obvious dark stools. EGD shows large hiatal hernia. Pending results of small bowel capsule study -Obesity BMI 39.5 -Chronic fibromyalgia -GERD -Hyperlipidemia -Essential hypertension -Primary osteoarthritis -Hypothyroid -Diabetes mellitus type II -Arthritis sleep apnea uses CPAP -Restless leg syndrome Plan: Saw the patient earlier today. Aspirin at the discontinued. Getting IV iron. Patient to be discharged tomorrow.
[2020-01-06] MEDS: LEVOTHYROXINE 75 MCG TAB PO SCH (05:16)
[2020-01-06 07:05] LABS: Glucose,Whole Blood 133 mg/dL (75-99)
[2020-01-06] MEDS: metFORMIN 500 MG TAB PO SCH (07:43)
[2020-01-06] MEDS: PANTOPRAZOLE 40 MG/10 ML VIAL IVP SCH (07:44)
[2020-01-06] MEDS: INSULIN ASPART (NovoLOG) 100 UNIT/ML VIAL SQ SCH (07:45)
[2020-01-06 08:12] LABS: Anisocytosis Marked; HCT 27.3 % (34.0-46.0); HGB 7.9 gm/dL (11.4-16.0); Hypochromasia Marked; MCV 68.9 fL (80.0-100.0); Mean Platelet Volume 6.4; Microcytosis Marked; Platelet Count 428 k/uL (150-450); Poikilocytosis Marked; RBC 3.96 m/uL (3.80-5.40); WBC 6.9 k/uL (3.8-10.6)
[2020-01-06 08:14] LABS: RDW 25.7 % (11.5-15.5)
[2020-01-06 10:15] VITALS: BP 130/70; PULSE 75; RESP 15; TEMP 98.5
--- NOTE | 2020-01-06 22:33 | P.PN ---
Subjective Progress Note Date: 01/06/20 Principal diagnosis: Microcytic Anemia hemoglobin stable, Status post one Parental Iron. Awaiting MMA Objective - Vital Signs Vital signs: Vital Signs Temp 98.5 F 01/06/20 10:14 Pulse 75 01/06/20 10:14 Resp 15 01/06/20 10:14 BP 130/70 01/06/20 10:14 Pulse Ox 96 01/06/20 05:00 Intake & Output 01/05/20 01/06/20 01/06/20 18:59 06:59 18:59 Intake Total 2280 240 Balance 2280 240 Intake: Intake, IV Titration 200 Amount Sodium Ferric Gluconat- 200 Sucrose 125 mg In Sodium Chloride 0.9% 100 ml @ 100 mls/hr IVPB Q24HR@ 1200 [facility] Rx#:[id number] Oral 2080 240 Other: Voiding Method Toilet # Voids 3 2 # Bowel Movements 2 - Exam - Constitutional General appearance: no acute distress - EENT Eyes: EOMI, PERRLA ENT: hearing grossly normal, normal oropharynx - Neck Neck: no lymphadenopathy Thyroid: bilateral: normal size - Respiratory Respiratory: bilateral: CTA - Cardiovascular Rhythm: regular Heart sounds: normal: S1, S2 - Gastrointestinal General gastrointestinal: normal bowel sounds, soft - Integumentary Integumentary: normal - Neurologic Neurologic: CNII-XII intact - Musculoskeletal Musculoskeletal: generalized weakness, strength equal bilaterally - Psychiatric Psychiatric: A&O x's 3, appropriate affect - Labs CBC & Chem 7: 01/06/20 06:00 01/04/20 04:51 Labs: Abnormal Lab Results - Last 24 Hours (Table) 01/05/20 01/05/20 01/05/20 Range/Units 06:17 17:16 20:36 Hgb (11.4-16.0) gm/dL Hct (34.0-46.0) % MCV (80.0-100.0) fL MCH (25.0-35.0) pg MCHC (31.0-37.0) g/dL RDW (11.5-15.5) % POC Glucose (mg/dL) 129 H 177 H (75-99) mg/dL Hemoglobin A1c 6.1 H (4.0-6.0) % 01/06/20 01/06/20 Range/Units 06:00 07:03 Hgb 7.9 L (11.4-16.0) gm/dL Hct 27.3 L (34.0-46.0) % MCV 68.9 L (80.0-100.0) fL MCH 20.0 L (25.0-35.0) pg MCHC 29.0 L (31.0-37.0) g/dL RDW 25.7 H (11.5-15.5) % POC Glucose (mg/dL) 133 H (75-99) mg/dL Hemoglobin A1c (4.0-6.0) % Assessment and Plan Plan: Comments: EGD and colonoscopy - Operative notes reviewed Assessment and Plan Microcytic hypochromic anemia - labs are indicative of Iron deficiency, no abnormalities on EGD/Colonoscopy - Status Post 2 - infusional Irons - Hemoglobin 7.3 today and stable - Awaiting MMA for possible absorption issue, B12 component. - She aravind follow up with Dr. munoz in 4-6 weeks to re-evaluate for parental iron need - This is most likely causative from low volume AVMs and blood loss. Plan for discharge today per Primary team Defer to the admitting service and other consultants for management of her other medical problems.
--- NOTE | 2020-01-08 22:19 | P.DS ---
Providers Date of admission: 01/02/20 22:41 Expected date of discharge: 01/06/20 Attending physician: Singh Roberto Consults: 01/02/20 22:41 Consult Physician Routine Consulting Provider: Subhash Fleming Consult Reason/Comments: anemia Do you want consulting provider notified?: Yes 01/04/20 19:34 Consult Physician Routine Consulting Provider: Latrell Castorena Consult Reason/Comments: Anemia Do you want consulting provider notified?: Yes Primary care physician: Shayne Weller [facility] Course: Chief Complaint: Weak History of presenting complaint: This is a pleasant 64-year-old patient of Dr. Curtis Weller. Chronic stable medical conditions include fibromyalgia, GERD, hypertension, hyperlipidemia, osteoarthritis, obstructive sleep apnea uses CPAP, restless leg syndrome, hiatal hernia, diverticulosis, hypothyroid. Patient does take a baby aspirin. Patient presents with progressive weakness. Getting dizzy. Short of breath with exertion. No chest pain. Patient is found to have a hemoglobin of 5.3. Patient denies any black stools. Also had a brown stool this morning. Patient was ordered 2 units of blood from ER this last night. This morning the hemoglobin was 6.8. I ordered another unit of blood. appetite has been stable. No weight loss. EGD.- Moderately large hiatal hernia. Colonoscopy-internal hemorrhoids. Mild sigmoid diverticulosis. Sigmoid polyp removed. small bowel capsule study done-results pending. Patient received a total of 3 units of blood. Today-seen by hematology.-Iron deficiency anemia Given IV iron. Discussed with the patient. She is feeling much better. Will follow-up as an outpatient.. Consultation: Dr. Castorena from oncology Dr. Ruiz from GI Physical examination: VITAL SIGNS: 98.5, 75, 15, 130/70, 96% on room air GENERAL: Propped up in bed, comfortable EYES: Pupils equal. Conjunctiva pale . NECK: JVD not raised; masses not palpable. HEART: First and second heart sounds are normal; no edema. LUNGS: Respiratory rate normal; clear to auscultation. ABDOMEN: Soft, nontender, liver spleen not palpable, no masses palpable. PSYCH: Alert and oriented x3; mood and affect normal. INVESTIGATIONS, reviewed in the clinical context: Hemoglobin 7.9 Previous testing White count 6.8 hemoglobin 5. 3 repeat - 6.8 platelets 505 MCV 60.9 Potassium 3.8 creatinine 0.75 INR 175 TIBC 527 ferritin 2.8 vitamin B12 572 folate 20.2 HbA1c 6.1 Assessment: -Acute severe microcytic anemia in a patient who takes baby aspirin. Possibly GI bleed. Denies any obvious dark stools. EGD shows large hiatal hernia. Patient received 3 units of PRBC. -Obesity BMI 39.5 -Chronic fibromyalgia -GERD -Hyperlipidemia -Essential hypertension -Primary osteoarthritis -Hypothyroid -Diabetes mellitus type II -Arthritis sleep apnea uses CPAP -Restless leg syndrome -Large hiatal hernia Disposition: Home Patient Condition at Discharge: Stable Plan - Discharge Summary Discharge Rx Participant: No New Discharge Prescriptions: New Omeprazole [PriLOSEC] 20 mg PO AC-BRKFST #30 cap Ferrous Sulfate [Feosol] 325 mg PO BID #90 tab Continue metFORMIN HCL [Glucophage] 500 mg PO BID Vitamin B Complex 1 cap PO DAILY Simvastatin [Zocor] 10 mg PO HS Loratadine 10 mg PO DAILY Levothyroxine Sodium [Synthroid] 150 mcg PO DAILY DULoxetine HCL [Cymbalta] 60 mg PO DAILY tiZANidine [Zanaflex] 4 mg PO HS Discontinued Magnesium Oxide 400 mg PO HS Aspirin EC [Ecotrin Low Dose] 81 mg PO DAILY hydroCHLOROthiazide 25 mg PO DAILY Famotidine 20 mg PO DAILY Discharge Medication List DULoxetine HCL [Cymbalta] 60 mg PO DAILY 01/02/20 [History] Levothyroxine Sodium [Synthroid] 150 mcg PO DAILY 01/02/20 [History] Loratadine 10 mg PO DAILY 01/02/20 [History] Simvastatin [Zocor] 10 mg PO HS 01/02/20 [History] Vitamin B Complex 1 cap PO DAILY 01/02/20 [History] metFORMIN HCL [Glucophage] 500 mg PO BID 01/02/20 [History] tiZANidine [Zanaflex] 4 mg PO HS 01/02/20 [History] Ferrous Sulfate [Feosol] 325 mg PO BID #90 tab 01/06/20 [Rx] Omeprazole [PriLOSEC] 20 mg PO AC-BRKFST #30 cap 01/06/20 [Rx] Follow up Appointment(s)/Referral(s): Latrell Castorena MD [STAFF PHYSICIAN] - 4 Weeks Shayne Weller MD [Primary Care Provider] - 01/10/20 3:00 pm Subhash Fleming MD [STAFF PHYSICIAN] - 02/03/20 10:00 am Patient Instructions/Handouts: Iron Supplements (By mouth), Omeprazole (By mouth), Type 2 Diabetes in Adults: New Diagnosis (ED), Anemia (ED) Activity/Diet/Wound Care/Special Instructions: cbc - 1 week Discharge Disposition: HOME SELF-CARE
--- NOTE | 2020-01-09 01:58 | CDI ---
Documentation Clarification Form Date: 01/09/2020 From: Darrel Cisneros Phone: If you have a question about this query, please contact Dee Zhou, [employer]aching Machine Operator at [phone] between 8am and 5pm. Admit Date: 01/02/2020 Discharge Date: 01/06/2020 Patient Name: Edith Hernández Visit Number: [id number] ATTENTION: The Clinical Documentation Specialists (CDI) and [facility] Coding Staff appreciate your assistance in clarifying documentation. Please respond to the clarification below the line at the bottom and electronically sign. The CDI & [facility] Coding staff will review the response and follow-up if needed. Please note: Queries are made part of the Legal Health Record. If you have any questions, please contact the author of this message via ITS. Dear Singh Burch MD., Anemia is documented in through out medical record as Acute severe microcytic anemia in a patient who takes baby aspirin. History/Risk Factors: GI Bleed, Diverticulitis, gastritis Hemoglobin: 5.3H Hematocrit: 20.4L Treatment:3 Units of PRBC transfusion. -Acute severe microcytic anemia in a patient who takes baby aspirin.Possibly GI bleed.Denies any obvious dark stools.EGD shows large hiatal hernia. Patient received 3 units of PRBC. In order to capture the severity of condition, please clarify Acute blood loss anemia Presence? YES NO unable to determine Other, please specify YES MTDD
== END 2020-01-06 12:33 | disposition home or self-care (01) | DRG 378 ==
LOC: EC 21:30 → 6NMEDSUR 22:41
PROVIDERS: ADMIT Hospitalist; ATTEND Hospitalist
PROC: 0DB98ZX Excision of Duodenum, Via Natural or Artificial Opening Endoscopic, Diagnostic (ICD-10-PCS; principal; 2020-01-04 11:30)
PROC: 0DBN8ZX Excision of Sigmoid Colon, Via Natural or Artificial Opening Endoscopic, Diagnostic (ICD-10-PCS; principal; 2020-01-04 11:30)
PROC: 0DB78ZX Excision of Stomach, Pylorus, Via Natural or Artificial Opening Endoscopic, Diagnostic (ICD-10-PCS; principal; 2020-01-04 11:30)
PROC: 30233N1 Transfusion of Nonautologous Red Blood Cells into Peripheral Vein, Percutaneous Approach (ICD-10-PCS; 2020-01-04 11:30)
DX: K29.71 Gastritis, unspecified, with bleeding (principal); D62 Acute posthemorrhagic anemia; E03.9 Hypothyroidism, unspecified; E11.9 Type 2 diabetes mellitus without complications; E66.9 Obesity, unspecified; E78.5 Hyperlipidemia, unspecified; G25.81 Restless legs syndrome; D50.9 Iron deficiency anemia, unspecified; G47.33 Obstructive sleep apnea (adult) (pediatric); I10 Essential (primary) hypertension; M79.7 Fibromyalgia; K57.31 Diverticulosis of large intestine without perforation or abscess with bleeding; K21.9 Gastro-esophageal reflux disease without esophagitis; K44.9 Diaphragmatic hernia without obstruction or gangrene; K63.5 Polyp of colon; K64.8 Other hemorrhoids; M19.91 Primary osteoarthritis, unspecified site; Z68.39 Body mass index [BMI] 39.0-39.9, adult; Z79.82 Long term (current) use of aspirin; Z79.84 Long term (current) use of oral hypoglycemic drugs; Z79.890 Hormone replacement therapy; Z79.899 Other long term (current) drug therapy; Z82.5 Family history of asthma and other chronic lower respiratory diseases; Z87.19 Personal history of other diseases of the digestive system; Z87.442 Personal history of urinary calculi; Z90.710 Acquired absence of both cervix and uterus; Z88.2 Allergy status to sulfonamides; Z88.8 Allergy status to other drugs, medicaments and biological substances; Z90.49 Acquired absence of other specified parts of digestive tract; Z90.89 Acquired absence of other organs; Z98.49 Cataract extraction status, unspecified eye; Z80.42 Family history of malignant neoplasm of prostate
CPT/HCPCS: 36415; 36430; 43239; 45380; 80048; 80053; 82607; 82728; 82746; 83010; 83036; 83540; 83550; 83735; 84484; 85025; 85027; 85045; 85610; 85730; 86850; 86900; 86901; 86920; 88305; 91110; 96360; 96361; 99285